=== PATIENT | male | born 1990 | race American Indian/Alaskan Native ===

== ENCOUNTER 2017-10-21 12:01 | Emergency (ER) | payer OTHER ==
[2017-10-21 12:40] VITALS: BP 117/58
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
== END 2017-10-21 14:28 | disposition home or self-care (01) ==
LOC: ED 12:01
DX: M54.5 Low back pain (principal); F12.10 Cannabis abuse, uncomplicated
CPT/HCPCS: 99282

== ENCOUNTER 2017-11-18 16:16 | Emergency (ER) | payer SELFPAY ==
[2017-11-18 16:35] VITALS: BP 116/73
== END 2017-11-18 19:37 | disposition left against medical advice (07) ==
LOC: ED 16:16
DX: A64 Unspecified sexually transmitted disease (principal); Z53.21 Procedure and treatment not carried out due to patient leaving prior to being seen by health care provider